=== PATIENT | male | born 1965 | race Caucasian/White ===

== ENCOUNTER 2021-06-15 09:14 | Observation (INO) ==
[2021-06-15] MEDS ORDERED: Naloxone 0.4 MG/ML INJ IVP PRN (10:32)
[2021-06-15] MEDS ORDERED: *HR* HYDROcodone/Acet 5/325 mg TABLET PO PRN (10:37)
[2021-06-15] MEDS ORDERED: Acetaminophen 325 MG TABLET PO PRN (10:37)
[2021-06-15] MEDS ORDERED: hydrOXYzine pamoate 25 MG CAPSULE PO PRN (11:24)
[2021-06-15] MEDS ORDERED: 0.9 % Sodium Chloride 1,000 ML IVC SCH (11:30)
[2021-06-15] MEDS ORDERED: *HR* Dextrose 50 % in Water (Vial) 50 ML VIAL IVP PRN (11:39)
[2021-06-15] MEDS ORDERED: D5% in Water 1,000 ML IVC PRN (11:39)
[2021-06-15] MEDS ORDERED: Dextrose Gel 15 GM/37.5 ML TUBE PO PRN ×2 (11:39)
[2021-06-15] MEDS: Insulin LISPRO 300 UNITS/3 ML VIAL SUBQ SCH ×2 (17:12)
[2021-06-15] MEDS: hydrOXYzine pamoate 25 MG CAPSULE PO PRN (20:55)
[2021-06-15] MEDS ORDERED: Insulin LISPRO 300 UNITS/3 ML VIAL SUBQ SCH (21:00)
[2021-06-15] MEDS ORDERED: Insulin DETEMIR 100 UNIT/ML X5UNITS SUBQ SCH (21:00)
[2021-06-15] MEDS ORDERED: traZODone 50 MG TABLET PO SCH (21:00)
[2021-06-16] MEDS: hydrOXYzine pamoate 25 MG CAPSULE PO PRN (05:54)
[2021-06-16] MEDS ORDERED: Regadenoson 0.4 MG/5 ML SYRINGE IVP ONE (06:28)
[2021-06-16 06:32] LABS: Basophils # 0.1 K/mcL (0.0-0.2); Basophils % 1.1 %; Eosinophils # 0.3 K/mcL (0.0-0.6); Eosinophils % 4.1 %; Hematocrit 37.3 % (37.5-50.1); Hemoglobin 12.7 g/dL (12.9-16.9); Immature Granulocytes % 0.9 % (0-4); Lymphocytes # 2.7 K/mcL (0.6-4.6); Mean Corpuscular Hemoglobin 29.1 pg (28.0-33.3); Mean Corpuscular Volume 85.6 fL (83.0-100.0); Mean Platelet Volume 11.4 fL (9.4-12.4); Monocytes # 0.5 K/mcL (0.0-1.3); Monocytes % 6.4 %; Neutrophils # 3.7 K/mcL (1.6-8.9); Platelet Count 267 K/mcL (140-400); Red Blood Count 4.36 M/mcL (4.19-5.50); Red Cell Distribution Width 12.9 % (11.5-14.5); Segmented Neutrophils % 50.5 %; White Blood Count 7.4 K/mcL (4.3-11.1)
[2021-06-16 06:54] LABS: BUN/Creatinine Ratio 22 (6-26); Blood Urea Nitrogen 19 mg/dL (6-20); Calcium 8.9 mg/dL (8.6-10.3); Carbon Dioxide 28 mEq/L (23-29); Chloride 104 mEq/L (98-107); Chol/HDL Ratio 3.2 (0-4.9); Cholesterol 110 mg/dL (< 200); Glucose 182 mg/dL (70-105); HDL Cholesterol 34 mg/dL (40-59); LDL Cholesterol,Calculated 51 mg/dL (< 100); Osmolality,Calculated 291 (280-300); Potassium 3.9 mEq/L (3.5-5.1); Sodium 137 mEq/L (136-145); Triglycerides 124 mg/dL (< 150); eGFR For African Americans > 60 (> 60); eGFR For Non-African Americans > 60 (> 60)
[2021-06-16 07:05] LABS: Thyroid Stimulating Hormone 14.335 mcIU/mL (0.340-5.600)
[2021-06-16 07:47] LABS: Estimated Average Glucose 332 mg/dl; Hemoglobin A1C 13.2 %
[2021-06-16] MEDS: Insulin LISPRO 300 UNITS/3 ML VIAL SUBQ SCH ×4 (08:40→12:04)
[2021-06-16] MEDS ORDERED: Aspirin Enteric Coated 325 MG Tablet PO SCH (09:00)
[2021-06-16] MEDS ORDERED: Levothyroxine 25 MCG TABLET PO SCH (09:00)
[2021-06-16] MEDS ORDERED: Insulin DETEMIR 100 UNIT/ML X5UNITS SUBQ SCH (09:45)
[2021-06-16 10:57] LABS: Triiodothyronine (T3) Total 50 ng/dL (87-178)
[2021-06-16] MEDS ORDERED: 0.9 % Sodium Chloride 1,000 ML IVC SCH ×2 (11:45→14:13)
[2021-06-16 14:44] VITALS: TEMP 98.2; O2SAT 93
[2021-06-16 15:12] VITALS: PULSE 95
[2021-06-16 15:34] VITALS: BP 112/82
== END 2021-06-16 16:55 | disposition home or self-care (01) ==
LOC: 3BNU → SUATTDRO 09:16
PROVIDERS: ADMIT Family Medicine; ATTEND Internal Medicine

== ENCOUNTER 2022-03-10 19:08 | Observation (INO) ==
[2022-03-10 19:54] LABS: Basophils % 0.5 %; Eosinophils # 0.2 K/mcL (0.0-0.6); Eosinophils % 2.2 %; Hematocrit 35.9 % (37.5-50.1); Hemoglobin 11.6 g/dL (12.9-16.9); Immature Granulocytes % 0.2 % (0-4); Lymphocytes # 1.9 K/mcL (0.6-4.6); Lymphocytes % 22.4 %; Mean Corpuscular HGB Conc 32.3 g/dL (31.6-35.5); Mean Corpuscular Hemoglobin 29.1 pg (28.0-33.3); Mean Corpuscular Volume 90.2 fL (83.0-100.0); Mean Platelet Volume 10.5 fL (9.4-12.4); Monocytes # 0.6 K/mcL (0.0-1.3); Monocytes % 7.2 %; Neutrophils # 5.9 K/mcL (1.6-8.9); Platelet Count 284 K/mcL (140-400); Red Blood Count 3.98 M/mcL (4.19-5.50); Red Cell Distribution Width 12.3 % (11.5-14.5); Segmented Neutrophils % 67.5 %; White Blood Count 8.7 K/mcL (4.3-11.1)
[2022-03-10 20:05] LABS: Acetaminophen < 10 mcg/mL (10-20); BUN/Creatinine Ratio 23 (6-26); Blood Urea Nitrogen 23 mg/dL (6-20); Calcium 9.2 mg/dL (8.6-10.3); Carbon Dioxide 27 mEq/L (23-29); Chloride 104 mEq/L (98-107); Glucose 199 mg/dL (70-105); Osmolality,Calculated 295 (280-300); Potassium 4.5 mEq/L (3.5-5.1); Salicylate < 2.5 mg/dL (15.0-30.0); Sodium 138 mEq/L (136-145); eGFR For African Americans > 60 (> 60); eGFR For Non-African Americans > 60 (> 60)
[2022-03-10 20:15] LABS: Amphetamine Screen,Urine Negative ng/mL (Cutoff=1000); Barbiturate Screen,Urine Negative ng/mL (Cutoff=200); Benzodiazepines Screen,Urine Negative ng/mL (Cutoff=200); Cannabinoid Screen,Urine Positive ng/mL (Cutoff = 50); Cocaine Screen,Urine Negative ng/mL (Cutoff= 300); Opiate Screen,Urine Negative ng/mL (Cutoff=300); Phencyclidine Screen,Urine Negative ng/mL (Cutoff=25)
[2022-03-10 20:20] LABS: Bilirubin,Urine Negative (Negative); Blood,Urine Negative (Negative); Clarity,Urine Clear (Clear); Color,Urine Yellow (Yellow); Glucose,Urine (UA) 30 mg/dL (Normal); Hyaline Casts,Urine Moderate per lpf (None Seen); Ketones,Urine Negative (Negative); Leukocyte Esterase,Urine Negative (Negative); Mucus,Urine Few per lpf (None-Few); Nitrite,Urine Negative (Negative); Protein,Urine >=300 mg/dL (Neg-Trace); RBC,Urine 0-3 per hpf (0-3); Specific Gravity,Urine 1.028 (1.010-1.025); Urobilinogen,Urine Normal (Normal); WBC,Urine 0-3 per hpf (0-3)
[2022-03-10 20:24] LABS: Ethanol < 10 mg/dL (Less than 10)
[2022-03-11 00:01] LABS: Creatine Kinase 119 Units/L (30-223)
[2022-03-11 00:02] LABS: Influenza A PCR Negative (Negative); Influenza B PCR Negative (Negative); Resp. Syncytial Virus PCR Negative (Negative)
[2022-03-11 00:06] LABS: SARS-CoV-2 by PCR (In House) Negative (Negative)
[2022-03-11] MEDS ORDERED: haloperidoL 5 MG TABLET PO PRN (00:31)
[2022-03-11] MEDS ORDERED: Haloperidol Lactate 5 MG/ML VIAL IM PRN (00:31)
[2022-03-11] MEDS ORDERED: Ibuprofen 400 MG TABLET PO PRN (00:31)
[2022-03-11] MEDS ORDERED: traZODone 50 MG TABLET PO PRN (00:31)
[2022-03-11] MEDS ORDERED: *HR* LORazepam 1 MG TABLET PO PRN (00:31)
[2022-03-11] MEDS ORDERED: Acetaminophen 325 MG TABLET PO PRN (00:31)
[2022-03-11] MEDS ORDERED: *HR* LORazepam 2 MG/ML VIAL IM PRN (00:31)
[2022-03-11] MEDS ORDERED: MOM Conc 10 ML UD.LIQ PO PRN (00:31)
[2022-03-11] MEDS ORDERED: Mag Hydrox/Al Hydrox/Simeth 30 ML UDC PO PRN (00:31)
[2022-03-11] MEDS: hydrOXYzine pamoate 25 MG CAPSULE PO PRN ×2 (01:08→09:24)
[2022-03-11] MEDS ORDERED: Aspirin 81 MG TAB.CHEW PO SCH (09:00)
[2022-03-11] MEDS ORDERED: Nicotine 21 MG PATCH.TD24 TD SCH (09:00)
[2022-03-11 09:27] VITALS: TEMP 98; O2SAT 98
[2022-03-11] MEDS ORDERED: Dextrose 4 GM Chewable Tablets PO PRN ×2 (09:51)
[2022-03-11 10:09] VITALS: PULSE 85
[2022-03-11 11:07] VITALS: BP 86/64
[2022-03-11] MEDS ORDERED: Insulin LISPRO 300 UNITS/3 ML VIAL SUBQ SCH (12:00)
[2022-03-11] MEDS ORDERED: Ringers Solution, Lactated 1,000 ML IVC ONE (12:07)
[2022-03-11] MEDS ORDERED: Insulin DETEMIR 100 UNIT/ML X5UNITS SUBQ SCH (21:00)
== END 2022-03-11 14:08 | disposition other institution (70) ==
LOC: EMEROOARM 19:08 → INTOOBSV 03-11 00:27 → 1ANU 03-11 00:27
PROVIDERS: ADMIT Psychiatry & Neurology Psychiatry; ATTEND Psychiatry & Neurology Psychiatry

== ENCOUNTER 2022-03-11 11:58 | Observation (INO) ==
[2022-03-11] MEDS ORDERED: Naloxone 0.4 MG/ML INJ IVP PRN (12:33)
[2022-03-11] MEDS ORDERED: Acetaminophen 325 MG TABLET PO PRN (12:33)
[2022-03-11] MEDS ORDERED: Ringers Solution, Lactated 1,000 ML IVC ONE (12:35)
[2022-03-11 15:18] LABS: Basophils # 0.1 K/mcL (0.0-0.2); Basophils % 0.7 %; Eosinophils # 0.2 K/mcL (0.0-0.6); Eosinophils % 2.1 %; Hematocrit 33.1 % (37.5-50.1); Hemoglobin 11.1 g/dL (12.9-16.9); Immature Granulocytes % 0.4 % (0-4); Lymphocytes # 1.8 K/mcL (0.6-4.6); Lymphocytes % 24.6 %; Mean Corpuscular HGB Conc 33.5 g/dL (31.6-35.5); Mean Corpuscular Hemoglobin 29.8 pg (28.0-33.3); Mean Corpuscular Volume 88.7 fL (83.0-100.0); Mean Platelet Volume 10.3 fL (9.4-12.4); Monocytes # 0.5 K/mcL (0.0-1.3); Monocytes % 6.7 %; Neutrophils # 4.8 K/mcL (1.6-8.9); Platelet Count 249 K/mcL (140-400); Red Blood Count 3.73 M/mcL (4.19-5.50); Red Cell Distribution Width 12.2 % (11.5-14.5); Segmented Neutrophils % 65.5 %; White Blood Count 7.3 K/mcL (4.3-11.1)
[2022-03-11] MEDS: hydrOXYzine pamoate 25 MG CAPSULE PO SCH ×2 (15:23→19:33)
[2022-03-11 15:50] LABS: Alanine Aminotransferase 20 Units/L (7-52); Albumin 3.5 g/dL (3.5-5.7); Albumin/Globulin Ratio 1.1 (1.1-2.2); Alkaline Phosphatase 105 Units/L (34-104); Aspartate Amino Transferase 18 Units/L (13-39); BUN/Creatinine Ratio 29 (6-26); Bilirubin,Total 0.4 mg/dL (0.3-1.0); Blood Urea Nitrogen 25 mg/dL (6-20); Carbon Dioxide 25 mEq/L (23-29); Chloride 106 mEq/L (98-107); Globulin 3.3 g/dL (2.4-3.5); Glucose 189 mg/dL (70-105); Osmolality,Calculated 295 (280-300); Phosphorous 3.7 mg/dL (2.7-4.5); Potassium 4.4 mEq/L (3.5-5.1); Sodium 138 mEq/L (136-145); Total Protein 6.8 g/dL (6.4-8.9); eGFR For African Americans > 60 (> 60); eGFR For Non-African Americans > 60 (> 60)
[2022-03-11] MEDS ORDERED: traZODone 50 MG TABLET PO PRN (17:47)
[2022-03-12] MEDS ORDERED: *HR* Enoxaparin 30 MG/0.3 ML SYRINGE SQ SCH (06:00)
[2022-03-12] MEDS ORDERED: Patient Taking Own Medication 1 EACH SQ SCH (09:00)
[2022-03-12] MEDS ORDERED: Aspirin 81 MG TAB.CHEW PO SCH (09:00)
[2022-03-12] MEDS: Levothyroxine 25 MCG TABLET PO SCH ×2 (09:29→09:32)
[2022-03-12] MEDS: hydrOXYzine pamoate 25 MG CAPSULE PO SCH ×3 (09:29→21:46)
[2022-03-12] MEDS ORDERED: Dextrose 4 GM Chewable Tablets PO PRN ×2 (14:03)
[2022-03-12] MEDS ORDERED: D5% in Water 1,000 ML IVC PRN (14:03)
[2022-03-12] MEDS ORDERED: *HR* Dextrose 50 % in Water (Syg) 50 ML SYRINGE IVP PRN (14:03)
[2022-03-12] MEDS: Insulin LISPRO 300 UNITS/3 ML VIAL SUBQ SCH ×2 (14:54→18:13)
[2022-03-12] MEDS ORDERED: Insulin DETEMIR 100 UNIT/ML X5UNITS SUBQ SCH (21:00)
[2022-03-12 21:49] VITALS: BP 160/75; PULSE 89; TEMP 98.5; O2SAT 98
[2022-03-13] MEDS ORDERED: *HR* Enoxaparin 40 MG/0.4 ML SYRINGE SQ SCH (06:00)
== END 2022-03-12 23:17 ==
LOC: 2ANU → SUATTDRO 14:14
PROVIDERS: ADMIT Internal Medicine; ATTEND Pharmacist